=== PATIENT | female | born 1995 | race Two or more races ===

== ENCOUNTER 2024-10-10 08:08 | Emergency (ER) | payer MEDICAID, SELFPAY ==
[2024-10-10 08:16] VITALS: BP 123/81; PULSE 83; RESP 18; TEMP 36.9; O2SAT 99; BMI 40.3
--- NOTE | 2024-10-10 08:27 | XR_ITS ---
Examination: CT brain head without contrast. 2-D sagittal coronal reconstructions Date and time of exam:October 10, 2024 1023 hours INDICATIONS: Onset headaches today CTDI: vol (mGy):52 DLP: (mGycm):1056 Technique: Multiple CT axial sections of the brain have been obtained, 5 mm slice thickness. Contrast has not been administered. 2-D sagittal, coronal reconstructions have been obtained Low dose protocols were performed. One or more of the following dose reduction techniques were used; automated exposure control, adjustment of the mA and/or KV according to patient size, use of iterative reconstruction technique. Findings: No significant ventricular enlargement. Intra-axial or extra-axial hemorrhage density is not seen. No mass effect or midline shift Basal cisterns are not remarkable. Fourth ventricle is midline. Cranial vault intact. Impression: Negative for acute hemorrhage, mass effect or midline shift Advise clinical correlation and follow-up accordingly
[2024-10-10 08:44] LABS: Basophils % (Auto) 0 % (0-2.5); Eosinophils # (Auto) 0.1 Thou/mm3 (0.0-0.5); Eosinophils % (Auto) 2 % (0-10); Hematocrit 36.5 % (36.0-46.0); Hemoglobin 11.4 g/dL (12.0-16.0); Immature Granulocytes % (Auto) 0 % (0-0); Immature Granulocytes Auto 0.02 Thou/mm3 (0.00-0.00); Lymphocytes # (Auto) 1.3 Thou/mm3 (1.0-4.8); Lymphocytes % (Auto) 20 % (10-50); Mean Corpuscular HGB Conc 31.2 g/dl (31.0-37.0); Mean Corpuscular Hemoglobin 24.4 pg (25.0-35.0); Mean Corpuscular Volume 78 fL (80-100); Monocytes # (Auto) 0.3 Thou/mm3 (0.0-0.8); Monocytes % (Auto) 4 % (0-12); Neutrophils # (Auto) 4.7 Thou/mm3 (1.8-7.7); Neutrophils % (Auto) 73 % (37-80); Nucleated Red Blood Cell % 0 /100 WBC (0); Platelet Count 310 Thou/mm3 (140-440); Red Blood Count 4.68 Miln/mm3 (4.00-5.20); White Blood Count 6.4 Thou/mm3 (3.6-11.0)
[2024-10-10 08:50] LABS: Collection Type, Urine Clean Catch
[2024-10-10] MEDS: DiphenhydrAMINE 25 MG CAPSULE PO (08:53)
[2024-10-10] MEDS: HYDROcodone/APAP 5/325 TABLET 1 TAB PO (08:53)
[2024-10-10] MEDS: METOCLOPRAMIDE 5 MG TABLET 10 MG PO (08:53)
[2024-10-10 08:56] LABS: Bilirubin,Urine Negative (Negative); Blood,Urine Negative (Negative); Clarity,Urine Clear (Clear/Hazy); Color,Urine Lt-Yellow (Lt Yel-Yel); Culture Indicated,Urine Not Indicated; Glucose, Urine Negative (Negative); Ketones,Urine Negative (Negative); Leukocyte Esterase,Urine Negative (Negative); Nitrite,Urine Negative (Negative); PH,Urine 7.5 (5.0-7.0); Protein,Urine Negative (Neg - Trace); RBC,Urine < 1 /hpf (0-3); Specific Gravity,Urine 1.018 (1.001-1.035); Squamous Epithelial Cell,Urine 3 /hpf (0-5); Urobilinogen,Urine Negative mg/dL (0.0-1.0); WBC,Urine 1 /hpf (0-5)
[2024-10-10 08:56] LABS: Alanine Aminotransferase 14 U/L (10-49); Albumin, Serum 4.5 gm/dL (3.5-5.0); Albumin/Globulin Ratio 1.4 (1.2-2.2); Alkaline Phosphatase 53 U/L (46-116); Anion Gap 8 (7-16); Aspartate Amino Transferase 17 U/L (0-34); BUN/Creatinine Ratio 17 Ratio (12-20); Bilirubin,Total 0.5 mg/dL (0.3-1.2); Blood Urea Nitrogen 12 mg/dL (9-23); Calcium 9.8 mg/dL (8.3-10.6); Calcium (Corrected) 9.8 mg/dL (8.5-10.1); Carbon Dioxide 27.1 mMol/L (20.0-31.0); Chloride 106 mMol/L (98-107); Creatinine (Component) 0.7 mg/dL (0.6-1.3); Estimated Creatinine Clearance 154.3 mL/min (>60); Globulin 3.3 gm/dL (2.3-3.5); Glucose 100 mg/dL (74-106); Osmolality,Calculated 280 (275-295); Potassium 4.2 mMol/L (3.4-5.1); Sodium 141 mMol/L (136-145); Total Protein 7.8 gm/dL (5.7-8.2); eGFR > 60 See Note
[2024-10-10 08:58] LABS: HCG Qualitative,Urine Negative
--- NOTE | 2024-10-10 10:39 | PD.EDHA ---
ED Headache RME/HPI General Chief Complaint: Headache Stated Complaint: DEL RIO, NAUSEA, DIZZY, SHAKEY OVER 1 WK Time Seen by Provider: 10/10/24 08:10 Arrival date/time: 10/10/24 08:08 28-year-old female history of anxiety and depression currently on sertraline presents to the emergency department today complaints of headache and dizziness intermittently ongoing for the last week. Limitations: no limitations Related Data Home Medications ?Medication ?Instructions ?Recorded ?Confirmed omeprazole 20 mg capsule,delayed 20 mg PO DAILY 12/08/23 12/08/23 release sertraline 50 mg tablet 50 mg PO DAILY 12/08/23 12/08/23 Previous Rx's ?Medication ?Instructions ?Recorded benzonatate 100 mg capsule 100 mg PO TID #14 caps 02/01/24 ibuprofen 800 mg tablet 800 mg PO TID PRN pain #30 tabs 02/01/24 acetaminophen-caffeine 500 mg-65 1 tab PO Q6H PRN pain #30 tabs 10/10/24 mg tablet (Excedrin Tension Headache) ibuprofen 800 mg tablet 800 mg PO TID PRN pain #30 tabs 10/10/24 Allergies Allergy/AdvReac Type Severity Reaction Status Date / Time No Known Allergies Allergy Verified 10/10/24 08:11 Review of Systems Review of Systems Systems Reviewed: All systems reviewed, normal except as documented Constitutional Constitutional: Reports system reviewed and no additional complaints, except as documented, Denies fever(s) and Reports headache(s) Eyes Eyes: Reports system reviewed and no additional complaints, except as documented and Denies blurry vision ENT Ears, Nose, Mouth, and Throat: Reports system reviewed and no additional complaints, except as documented, Reports headache(s), Denies nasal congestion and Denies nasal discharge Cardiovascular Cardiovascular: Reports system reviewed and no additional complaints, except as documented, Denies chest pain and Denies dyspnea Respiratory Respiratory: Reports system reviewed and no additional complaints, except as documented, Denies chest congestion, Denies cough and Denies dyspnea Gastrointestinal Gastrointestinal: Reports system reviewed and no additional complaints, except as documented and Denies abdominal pain Integumentary/Breasts Skin/Breast: Reports system reviewed and no additional complaints, except as documented and Denies rash Neurologic Neurologic: Reports system reviewed and no additional complaints, except as documented, Reports as per HPI and Reports headache(s) Psychiatric Psychiatric: Reports system reviewed and no additional complaints, except as documented and Reports anxiety Past Medical History Past Medical History NEUROLOGIC: Negative Neurological Disorders or Seizures CARDIAC: Positive Hypercholesterolemia; Negative Cardiac Disorders or Congestive Heart Failure RESPIRATORY: Negative Chronic Obstructive Pulmonary Disease (COPD) or Asthma GASTROINTESTINAL: Negative Gastrointestinal Disorders GENITOURINARY: Negative Genitourinary Disorders or Renal Disease REPRODUCTIVE: Negative Pelvic Inflammatory Disease MUSCULOSKELETAL: Negative Musculoskeletal Disorders ENDOCRINE: Negative Endocrine Disorders, Diabetes Mellitus Type 1 or Diabetes Mellitus Type 2 HEMATOLOGIC: Negative Blood Disorders or Sickle Cell Disease PSYCHO/SOCIAL: Positive Depression and Anxiety OTHER HISTORY: Negative Autoimmune Disease, Blood Transfusions, Blood Transfusion Reaction, Anesthesia Reactions or Cancer Social History SMOKING STATUS: Former smoker ED Exam General Limitations: Present no limitations General appearance: Present alert and in no apparent distress Head Head exam: Present atraumatic, normocephalic and normal inspection Eye Eye exam: Present normal appearance, PERRL and EOMI; Absent conjunctival injection ENT ENT exam: Present normal exam, normal oropharynx and mucous membranes moist Neck Neck exam: Present normal inspection, full ROM and trachea midline Chest Chest inspection: Present normal inspection and symmetric chest wall rise Respiratory Respiratory exam: Present normal lung sounds bilaterally Cardiovascular Cardiovascular exam: Present regular rate, normal rhythm and normal heart sounds Abdominal Exam Abdominal exam: Present soft and normal bowel sounds; Absent distention, tenderness, guarding, rebound or rigidity Extremities Exam Extremities exam: Present normal inspection and full ROM Back Exam Back exam: Present normal inspection and full ROM Neurological Exam Neurological exam: Present alert, oriented X3, CN II-XII intact, normal gait and reflexes normal; Absent motor sensory deficit Psychiatric Psychiatric exam: Present normal affect and normal mood Skin Skin exam: Present warm, dry, intact and normal color; Absent rash Course Quality Measures none Orders Category Date Time Status CT head/brain wo con Stat Exams 10/10/24 08:27 Completed CBC Stat Lab 10/10/24 08:24 Completed Comprehensive Metabolic Panel Stat Lab 10/10/24 08:24 Completed HCG Qualitative,Urine Stat Lab 10/10/24 08:30 Completed UA, C/S IF [Urinalysis, C/S if Indicated] Stat Lab 10/10/24 08:30 Completed DiphenhydrAMINE [Benadryl] Med 10/10/24 08:27 Discontinued 25 mg PO X1 ONE HYDROcodone*/APAP 5/325 [[place] 5/325] Med 10/10/24 08:27 Discontinued 1 tab PO X1 ONE Metoclopramide [Reglan] Med 10/10/24 08:27 Discontinued 10 mg PO X1 ONE Vital Signs Vital signs: Vital Signs Temperature 98.5 F 10/10/24 08:16 Pulse Rate 83 10/10/24 08:16 Respiratory Rate 18 10/10/24 08:16 Blood Pressure 123/81 10/10/24 08:16 Pulse Oximetry (%) 99 10/10/24 08:16 Oxygen Delivery Method Room Air 10/10/24 08:16 O2 saturation 99% r/a wnl Headache MDM Narrative MDM Narrative:: 28-year-old female history of anxiety and depression currently on sertraline presents to the emergency department today complaints of headache and dizziness intermittently ongoing for the last week. On exam patient well-appearing patient does not appear ill or toxic patient walks with steady gait Imaging and lab work obtained no acute emergent findings noted Patient discharged home in no distress to follow-up with primary care doctor in the next 24 to 48 hours and for any worsening symptoms to return to the ER immediately Patient data External records reviewed:: [facility] previous records Clinical information provided by:: patient Social determinants that could affect healthcare access:: none Patient has the following chronic illnesses:: Anxiety, depression How is presenting disease/condition affected by chronic disease/condition?: exacerbated by Evaluation data The following diagnostics were reviewed and interpreted by me:: lab results and radiology exam(s) Lab and/or radiology exams considered but not ordered:: Labs radiology obtain Interpretation Summary: Reviewed by me Medications / Prescriptions Medications or Prescriptions considered but not ordered:: Given Medication administrations:: Medication Administration History Discontinued Medications Hydrocodone Bitart/Acetaminophen (Hydrocodone/Apap 5/325 Tablet) 1 tab PO X1 ONE Stop: 10/10/24 08:28 Last Admin: 10/10/24 08:53 Dose: 1 tab Documented By: LP Diphenhydramine HCl (Diphenhydramine 25 Mg Capsule) 25 mg PO X1 ONE Stop: 10/10/24 08:28 Last Admin: 10/10/24 08:53 Dose: 25 mg Documented By: LP Metoclopramide HCl (Metoclopramide 5 Mg Tablet) 10 mg PO X1 ONE Stop: 10/10/24 08:28 Last Admin: 10/10/24 08:53 Dose: 10 mg Documented By: LP Given Consultations Consultation(s) initiated? (list below): No Diagnosis Differential diagnosis headache: migraine, tension headache and subarachnoid hemorrhage Most likely diagnosis given after review of the tests above:: Headache Admission Indicated Admission indicated?: not indicated Admission Request Was there a request for admission?: No Disposition Plan Disposition Plan: Discharge Discharge Attestation Discharge Attestation: The patient and all family members were given an opportunity to ask questions and understood the discharge instructions. Discharge instructions specifically effects, indications for sooner follow up or return to the emergency department, and the expected course of current diagnosis. Patient condition: Stable Discharge Plan Plan Patient Disposition: HOME (Self Care) Disposition Comment: Stable Prescriptions/Referrals Prescriptions/Med Rec: New Excedrin Tension Headache 500-65 mg tablet 1 tab PO Q6H PRN (Reason: pain) Qty: 30 0RF ibuprofen 800 mg tablet 800 mg PO TID PRN (Reason: pain) Qty: 30 0RF No Action omeprazole 20 mg capsule,delayed release(DR/EC) 20 mg PO DAILY sertraline 50 mg tablet 50 mg PO DAILY benzonatate 100 mg capsule 100 mg PO TID Qty: 14 0RF ibuprofen 800 mg tablet 800 mg PO TID PRN (Reason: pain) Qty: 30 0RF Referrals: Solo Turcios MD [Primary Care Provider] - 10/11/24 Problem List Clinical Impression: Headache Patient/Caregiver Discharge Instructions Education Materials: Self-Care for Headaches Additional Instructions: Please follow up with your primary care doctor in the next 24-48hrs for any worsening symptoms return here immediately Print Language: Thai Stand Alone Forms: Jennifer Award Info., Work/School Release, Patient Portal Info Letter PA/FILAMENT CUTTER Supervising Physician JENNY/RENAN Supervising Physician: Dr. argueta
== END 2024-10-10 10:52 | disposition home or self-care (01) ==
PROVIDERS: Nurse Practitioner Primary Care; Emergency Provider Family Medicine; PCP Family Medicine
DX: R51.9 Headache, unspecified (principal); R42 Dizziness and giddiness
CPT/HCPCS: 36415; 70450; 80053; 81001; 81025; 85025; 99284; A9270

== ENCOUNTER 2024-10-12 07:42 | Emergency (ER) | payer MEDICAID, SELFPAY ==
--- NOTE | 2024-10-12 | XR_ITS ---
Examination: MRI brain without intravenous contrast. Date and time of exam: October 12, 2024 1014 hours Technique: Multiple axial and sagittal images of the brain obtained. Patient refused most of the MR imaging except diffusion images, ADC map images and FLAIR images FINDINGS: Ventricles are not enlarged No mass effect upon the ventricular system. Diffusion-weighted images demonstrate no focus of restricted diffusion FLAIR images are severely degraded by patient motion IMPRESSION: The study is severely limited secondary to lack of patient cooperation Ventricles are not enlarged, no mass effect upon the ventricular system No acute infarct No definite findings diagnostic for demyelinating disease
[2024-10-12 07:49] VITALS: BP 134/85; PULSE 77; RESP 17; TEMP 36.5; O2SAT 97; BMI 40.3
--- NOTE | 2024-10-12 08:35 | EDNOTE_ITS ---
ED Dizzyness RME/HPI General Chief Complaint: Dizziness Stated Complaint: DIZZY, SWEATING, SHAKING Time Seen by Provider: 10/12/24 08:01 Source: patient Arrival date/time: 10/12/24 07:42 This is a 28-year-old female presents to the emergency department with complaints of a near syncopal episode while at work. She reports during all night she was experiencing generalized headaches and sweating. Reports she went to work became dizzy and slumped over. Remains faintly hearing people's voices that woke her up. Reports at this time still feeling dizzy. Denies fever, chills, no neck pain no chest pain no nausea no vomiting. Mode of arrival: ambulatory Limitations: no limitations Related Data Home Medications ?Medication ?Instructions ?Recorded ?Confirmed omeprazole 20 mg capsule,delayed 20 mg PO DAILY 12/08/23 release sertraline 50 mg tablet 50 mg PO DAILY 12/08/2311/22 Previous Rx's ?Medication ?Instructions ?Recorded benzonatate 100 mg capsule 100 mg PO TID #14 caps 01/22 ibuprofen 800 mg tablet 800 mg PO TID PRN pain #30 t abs 02/01/24 acetaminophen-caffeine 500 mg-65 1 tab PO Q6H PRN pain #30 tabs 10/10/24 mg tablet (Excedrin Tension Headache) ibuprofen 800 mg tablet 800 mg PO TID PRN pain #30 t abs 10/10/24 Allergies Allergy/AdvReac Type Severity Reaction Status Date / Time No Known Allergies Allergy Verified 10/12/24 07:44 Review of Systems Review of Systems Systems Reviewed: All systems reviewed, normal except as documented Narrative Review of Systems: Gen: No fever, no chills, no weight loss EYES: No discharge, no visual changes, no pain HEENT: No ear pain, no congestion, no sore throat PULM: No shortness of breath, no cough, no congestion CV: No chest pain, no dyspnea on exertion, no palpitations GI: No nausea, no vomiting, no diarrhea, no pain, no constipation : No frequency, no urgency,? no dysuria Musc/skel: No joint pain, no back pain Skin: No rash? Psyc: No hallucinations, no depression Heme/Lymph: No easy bleeding or bruising tendencies Neuro: No weakness, + headache, positive dizziness ED Exam Narrative Physical exam: 28-year-old female awake and alert General Limitations: Present no limitations General appearance: Present alert and in no apparent distress Head Head exam: Present atraumatic Eye Eye exam: Present normal appearance, PERRL, EOMI and other (Mild Exophthalmos, + nystagmus) ENT ENT exam: Present normal exam, normal oropharynx and mucous membranes moist Neck Neck exam: Present normal inspection, full ROM and trachea midline Chest Chest inspection: Present normal inspection and symmetric chest wall rise Respiratory Respiratory exam: Present normal lung sounds bilaterally Cardiovascular Cardiovascular exam: Present regular rate, normal rhythm and normal heart sounds Abdominal Exam Abdominal exam: Present soft and normal bowel sounds; Absent distention, tenderness or guarding Extremities Exam Extremities exam: Present normal inspection and full ROM Back Exam Back exam: Present normal inspection and full ROM Neurological Exam Neurological exam: Present alert, oriented X3 and CN II-XII intact Expanded Neurological Exam Patient oriented to: Present person, place and time Speech: Present fluid speech Cranial nerves: Normal: EOM function (II, III, IV, ), facial sensation (V), facial palsy (VII), gag reflex (IX) and tongue deviation (XII) Cerebellar function: Normal: finger to nose and heel to mcintosh Cerebellar function: Present normal gait Motor strength - LUE: 5/5 Motor strength - RUE: 5/5 Motor strength - LLE: 5/5 Motor strength - RLE: 5/5 Upper motor neuron exam: Normal: geno neglect, pronator drift, Babinski sign and sensory extinction Coma scale eye opening: spontaneous Coma scale motor response: obeys commands Coma scale verbal response: oriented Coma scale total: 15 Psychiatric Psychiatric exam: Present normal affect and normal mood Skin Skin exam: Present warm, dry, intact and normal color Course Quality Measures none Orders Category Date Time Status MRI Screening NOW Care 10/12/24 08:11 Completed MR head/brain wo con Stat Exams 10/12/24 Completed CBC Stat Lab 10/12/24 08:32 Completed CMP [Comprehensive Metabolic Panel] Stat Lab 10/12/24 08:32 Completed Free T4 (Free Thyroxine) Stat Lab 10/12/24 08:32 Completed HCG,Qualitative Serum Stat Lab 10/12/24 08:32 Completed PTH [Parathyroid Hormone Intact] Stat Lab 10/12/24 08:32 Completed TSH [Thyroid Stimulating Hormone] Stat Lab 10/12/24 08:32 Completed Vital Signs Vital signs: Vital Signs Temperature 97.7 F 10/12/24 07:49 Pulse Rate 77 10/12/24 07:49 Respiratory Rate 17 10/12/24 07:49 Blood Pressure 134/85 H 10/12/24 07:49 Pulse Oximetry (%) 97 10/12/24 07:49 Oxygen Delivery Method Room Air 10/12/24 07:49 Dizziness MDM Narrative MDM Narrative:: 28-year-old female near syncopal episode while at work. She reports during all night she was experiencing generalized headaches and sweating. Reports she went to work became dizzy and slumped over. Vaguely remembers hearing people's voices that woke her up. Reports at this time still feeling dizzy. Denies fever, chills, no neck pain no chest pain no nausea no vomiting. Labs were ordered which mild anemia. CMP reassuring. TSH T4 PTH negative. hCG negative. MRI brain pending, negative acute pathology. CT completed today reviewed previous ER visit on 319 labs and imaging were reassuring. Advised patient that if she continues to have chronic headache she might need a referral to neurology. She is currently and not on any abortive or therapeutic medication for migraines. Reassured her symptoms can be related to her chronic headaches. ER precautions given. Patient data External records reviewed:: [facility] previous records Clinical information provided by:: patient Social determinants that could affect healthcare access:: none Patient has the following chronic illnesses:: Depression and chronic headaches How is presenting disease/condition affected by chronic disease/condition?: exacerbated by Evaluation data The following diagnostics were reviewed and interpreted by me:: lab results and radiology exam(s) Lab and/or radiology exams considered but not ordered:: no Interpretation Summary: see above Examination: MRI brain without intravenous contrast. Date and time of exam: October 12, 2024 1014 hours Technique: Multiple axial and sagittal images of the brain obtained. Patient refused most of the MR imaging except diffusion images, ADC map images and FLAIR images FINDINGS: Ventricles are not enlarged No mass effect upon the ventricular system. Diffusion-weighted images demonstrate no focus of restricted diffusion FLAIR images are severely degraded by patient motion IMPRESSION: The study is severely limited secondary to lack of patient cooperation Ventricles are not enlarged, no mass effect upon the ventricular system No acute infarct No definite findings diagnostic for demyelinating disease Medications / Prescriptions Medications or Prescriptions considered but not ordered:: no Medication administrations:: no Consultations Consultation(s) initiated? (list below): No Diagnosis Dizziness Differential Diagnosis: adverse reaction to drug, benign paroxysmal positional vertigo, orthostatic hypotension, vertebral basilar insufficiency, acute vestibular neuronitis, transient cerebral ischemia and other Most likely diagnosis given after review of the tests above:: Near syncopal, dizziness. Admission Indicated Admission indicated?: not indicated Admission Request Was there a request for admission?: No Disposition Plan Disposition Plan: Discharge Discharge Attestation Discharge Attestation: The patient and all family members were given an opportunity to ask questions and understood the discharge instructions. Discharge instructions specifically effects, indications for sooner follow up or return to the emergency department, and the expected course of current diagnosis. Patient condition: Stable Discharge Plan Plan Patient Disposition: HOME (Self Care) Prescriptions/Referrals Prescriptions/Med Rec: No Action omeprazole 20 mg capsule,delayed release(DR/EC) 20 mg PO DAILY sertraline 50 mg tablet 50 mg PO DAILY benzonatate 100 mg capsule 100 mg PO TID Qty: 14 0RF ibuprofen 800 mg tablet 800 mg PO TID PRN (Reason: pain) Qty: 30 0RF Excedrin Tension Headache 500-65 mg tablet 1 tab PO Q6H PRN (Reason: pain) Qty: 30 0RF ibuprofen 800 mg tablet 800 mg PO TID PRN (Reason: pain) Qty: 30 0RF Referrals: No Primary/Family,Physician [Primary Care Provider] - In 1 week Problem List Clinical Impression: Dizziness, Headache Patient/Caregiver Discharge Instructions Discharge Activity: activity as tolerated Education Materials: Self-Care for Headaches, ED Dizziness, Uncertain Cause Additional Instructions: It is very important that you make an appointment with your primary doctor You might need to be evaluated by neurologist In the last 2 visits to the emergency department all your labs and imaging were reassuring. If you have reoccurring headaches you might need migraine treatment Return to the emergency department this any worsening symptoms or change in condition. Print Language: Peruvian Stand Alone Forms: Jennifer Award Info., Work/School Release, Patient Portal Info Letter PA/ELECT[employer]ICAL [employer]IO MECHANIC Supervising Physician PA/[employer] MECH[employer]IC Supervising Physician: Dr Lundberg
[2024-10-12 08:40] LABS: Basophils % (Auto) 0 % (0-2.5); Eosinophils # (Auto) 0.1 Thou/mm3 (0.0-0.5); Eosinophils % (Auto) 2 % (0-10); Hemoglobin 11.3 g/dL (12.0-16.0); Immature Granulocytes % (Auto) 0 % (0-0); Immature Granulocytes Auto 0.01 Thou/mm3 (0.00-0.00); Lymphocytes # (Auto) 1.6 Thou/mm3 (1.0-4.8); Lymphocytes % (Auto) 26 % (10-50); Mean Corpuscular HGB Conc 31.4 g/dl (31.0-37.0); Mean Corpuscular Hemoglobin 24.3 pg (25.0-35.0); Mean Corpuscular Volume 77 fL (80-100); Monocytes # (Auto) 0.3 Thou/mm3 (0.0-0.8); Monocytes % (Auto) 4 % (0-12); Neutrophils # (Auto) 4.1 Thou/mm3 (1.8-7.7); Neutrophils % (Auto) 67 % (37-80); Nucleated Red Blood Cell % 0 /100 WBC (0); Platelet Count 284 Thou/mm3 (140-440); RDW Standard Deviation 39.8 fL (36.4-46.3); Red Blood Count 4.65 Miln/mm3 (4.00-5.20); White Blood Count 6.1 Thou/mm3 (3.6-11.0)
[2024-10-12 08:56] LABS: Parathyroid Hormone Intact 54.1 pg/ml (18.5-88.0)
[2024-10-12 09:01] LABS: Alanine Aminotransferase 14 U/L (10-49); Albumin, Serum 4.6 gm/dL (3.5-5.0); Albumin/Globulin Ratio 1.4 (1.2-2.2); Alkaline Phosphatase 55 U/L (46-116); Anion Gap 8 (7-16); Aspartate Amino Transferase 18 U/L (0-34); BUN/Creatinine Ratio 13 Ratio (12-20); Bilirubin,Total 0.5 mg/dL (0.3-1.2); Blood Urea Nitrogen 10 mg/dL (9-23); Carbon Dioxide 27.1 mMol/L (20.0-31.0); Chloride 105 mMol/L (98-107); Creatinine (Component) 0.8 mg/dL (0.6-1.3); Free T4 (Free Thyroxine) 1.06 ng/dL (0.89-1.76); Globulin 3.4 gm/dL (2.3-3.5); Glucose 92 mg/dL (74-106); Osmolality,Calculated 278 (275-295); Sodium 140 mMol/L (136-145); Thyroid Stimulating Hormone 0.68 uIU/mL (0.55-4.78); eGFR > 60 See Note
[2024-10-12 09:04] LABS: HCG,Qualitative Serum Negative
--- NOTE | 2024-10-12 09:50 | PC.NURSE ---
MRI CALLED AND MADE AWARE MRI SCREENING FORM IS DONE; PT READY FOR MRI. PER MRI, WILL GO TAKE PT SOON.
--- NOTE | 2024-10-12 10:35 | PC.NURSE ---
MRI CALLED, REPORTS PT UNABLE TO SIT THROUGH FULL EXAM.
[2024-10-12 11:56] VITALS: BP 118/75; PULSE 76; RESP 17; TEMP 36.8; O2SAT 98
== END 2024-10-12 11:58 | disposition home or self-care (01) ==
PROVIDERS: Nurse Practitioner Primary Care; Emergency Provider Emergency Medicine
DX: R42 Dizziness and giddiness (principal); R51.9 Headache, unspecified
CPT/HCPCS: 36415; 70551; 80053; 83970; 84439; 84443; 84703; 85025; 99284

== ENCOUNTER 2025-01-31 15:10 | Emergency (ER) | payer MEDICAID, SELFPAY ==
[2025-01-31 15:25] VITALS: BP 122/79; PULSE 82; RESP 16; TEMP 37.2; O2SAT 97; BMI 40.3
--- NOTE | 2025-01-31 15:35 | XR_ITS ---
Examination: CT abdomen and pelvis without contrast. Coronal 3-D reconstructions. Sagittal 2-D reconstructions. Date and time of exam:January 31, 2025 1632 hours INDICATIONS: Right flank pain and dysuria beginning 2 days ago CTDI: vol (mGy): 13 DLP: (mGycm): 747 Technique: Axial images of the abdomen have been obtained, 3 mm slice thickness Intravenous contrast material has not been administered. Low dose protocols were performed. One or more of the following dose reduction techniques were used; automated exposure control, adjustment of the mA and/or KV according to patient size, use of iterative reconstruction technique. Findings: No focal liver or splenic lesions Absent gallbladder No pancreatic or adrenal mass 1 mm mid pole right renal calculus, coronal image 104 Aorta normal size Normal appendix No bowel obstruction No pelvic mass No bladder mass or bladder calculi IMPRESSION: No hydronephrosis or ureteral calculi 1 mm mid pole nonobstructing right renal calculus
--- NOTE | 2025-01-31 15:35 | PD.EDRME ---
Rapid Medical Screening Exam RME Arrival date/time: 01/31/25 15:10 29-year-old female presents to the emergency department for complaints of dysuria, back pain and abdominal pain Chief Complaint: Urogenital-Female Time Seen by Provider: 01/31/25 15:20 Vital signs: Vital Signs Temperature 99.0 F 01/31/25 15:25 Pulse Rate 82 01/31/25 15:25 Respiratory Rate 16 01/31/25 15:25 Blood Pressure 122/79 01/31/25 15:25 Pulse Oximetry (%) 97 01/31/25 15:25 Oxygen Delivery Method Room Air 01/31/25 15:25
[2025-01-31 15:52] LABS: Collection Type, Urine Clean Catch
[2025-01-31 15:55] LABS: Bilirubin,Urine Negative (Negative); Blood,Urine Trace (Negative); Clarity,Urine Clear (Clear/Hazy); Color,Urine Lt-Yellow (Lt Yel-Yel); Culture Indicated,Urine Not Indicated; Glucose, Urine Negative (Negative); Ketones,Urine Negative (Negative); Leukocyte Esterase,Urine Negative (Negative); Nitrite,Urine Negative (Negative); PH,Urine 6.0 (5.0-7.0); Protein,Urine Negative (Neg - Trace); RBC,Urine 6 /hpf (0-3); Specific Gravity,Urine 1.025 (1.001-1.035); Squamous Epithelial Cell,Urine 4 /hpf (0-5); Urobilinogen,Urine Negative mg/dL (0.0-1.0); WBC,Urine 1 /hpf (0-5)
[2025-01-31 15:57] LABS: Basophils # (Auto) 0.0 Thou/mm3 (0.0-0.2); Basophils % (Auto) 0 % (0-2.5); Eosinophils # (Auto) 0.1 Thou/mm3 (0.0-0.5); Eosinophils % (Auto) 2 % (0-10); Hematocrit 32.3 % (36.0-46.0); Hemoglobin 10.5 g/dL (12.0-16.0); Immature Granulocytes Auto 0.03 Thou/mm3 (0.00-0.00); Lymphocytes # (Auto) 2.2 Thou/mm3 (1.0-4.8); Lymphocytes % (Auto) 25 % (10-50); Mean Corpuscular HGB Conc 32.5 g/dl (31.0-37.0); Mean Corpuscular Hemoglobin 24.5 pg (25.0-35.0); Mean Corpuscular Volume 75 fL (80-100); Monocytes # (Auto) 0.4 Thou/mm3 (0.0-0.8); Monocytes % (Auto) 4 % (0-12); Neutrophils # (Auto) 6.0 Thou/mm3 (1.8-7.7); Neutrophils % (Auto) 69 % (37-80); Nucleated Red Blood Cell # 0.00 Thou/mm3 (0.00-0.00); Nucleated Red Blood Cell % 0 /100 WBC (0); Platelet Count 277 Thou/mm3 (140-440); RDW Standard Deviation 40.9 fL (36.4-46.3); Red Blood Count 4.29 Miln/mm3 (4.00-5.20); White Blood Count 8.8 Thou/mm3 (3.6-11.0)
[2025-01-31 16:01] LABS: HCG Qualitative,Urine Negative
[2025-01-31 16:12] LABS: Alanine Aminotransferase 12 U/L (10-49); Albumin, Serum 4.4 gm/dL (3.5-5.0); Albumin/Globulin Ratio 1.5 (1.2-2.2); Alkaline Phosphatase 54 U/L (46-116); Anion Gap 9 (7-16); Aspartate Amino Transferase 14 U/L (0-34); BUN/Creatinine Ratio 11 Ratio (12-20); Bilirubin,Total 0.3 mg/dL (0.3-1.2); Blood Urea Nitrogen 11 mg/dL (9-23); Calcium 9.1 mg/dL (8.3-10.6); Calcium (Corrected) 9.1 mg/dL (8.5-10.1); Carbon Dioxide 28.5 mMol/L (20.0-31.0); Chloride 104 mMol/L (98-107); Creatinine (Component) 1.0 mg/dL (0.6-1.3); Estimated Creatinine Clearance 107.0 mL/min (>60); Globulin 3.0 gm/dL (2.3-3.5); Glucose 86 mg/dL (74-106); Lipase 42 U/L (12-53); Osmolality,Calculated 279 (275-295); Potassium 4.1 mMol/L (3.4-5.1); Sodium 141 mMol/L (136-145); Total Protein 7.4 gm/dL (5.7-8.2); eGFR > 60 See Note
[2025-01-31 17:53] VITALS: BP 132/78; PULSE 78; RESP 18; TEMP 36.8; O2SAT 98
--- NOTE | 2025-01-31 17:57 | EDNOTE_ITS ---
ED Female Urogenital RME/HPI General Chief complaint: Urogenital-Female Stated complaint: Back pain and painful urination X 1 week Time Seen by Provider: 01/31/25 15:20 Arrival date/time: 01/31/25 15:10 RME / HPI RME / HPI Narrative: 29-year-old female patient with no significant medical history, came in for evaluation regarding low back pain. Onset of symptoms for 1 week, described as burning-like sensation, pain radiates to the front. Associated with frequency. Patient denies any bladder incontinence denies any bowel incontinence denies any saddle anesthesia. Denies any trauma denies any fever denies any other complaints. Related Data Home Medications ?Medication ?Instructions ?Recorded ?Confirmed omeprazole 20 mg capsule,delayed 20 mg PO DAILY 12/08/23 release sertraline 50 mg tablet 50 mg PO DAILY 12/08/2311/22 Previous Rx's ?Medication ?Instructions ?Recorded benzonatate 100 mg capsule 100 mg PO TID #14 caps 01/22 ibuprofen 800 mg tablet 800 mg PO TID PRN pain #30 t abs 02/01/24 acetaminophen-caffeine 500 mg-65 1 tab PO Q6H PRN pain #30 tabs 10/10/24 mg tablet (Excedrin Tension Headache) ibuprofen 800 mg tablet 800 mg PO TID PRN pain #30 t abs 10/10/24 cyclobenzaprine 10 mg tablet 10 mg PO TID PRN muscle s pasm #30 01/31/25 tabs ibuprofen 800 mg tablet 800 mg PO Q8H PRN pain #30 t abs 01/31/25 Allergies Allergy/AdvReac Type Severity Reaction Status Date / Time No Known Allergies Allergy Verified 01/31/25 15:13 Review of Systems Review of Systems Narrative Review of Systems: Review of system reviewed and within normal limits except mentioned in HPI ED Exam Narrative Physical exam: VITAL SIGNS: Reviewed. GENERAL APPEARANCE: Alert and interactive, follows commands, no acute distress, HEAD AND FACE: Non-traumatic. ENT: PERRL, pink conjunctivitis, eyelid no trauma, Mucous membrane moist. NECK: Supple, nontender, no nuchal rigidity. CHEST: No tenderness, no crepitus, no paradoxical movement, no retractions. LUNGS: Clear, well ventilated, symmetric, no rales, no wheezing, no ronchi, no stridor, good breath sounds bilaterally. HEART: Regular rate, regular rhythm, no murmur, no gallops. ABDOMEN: Soft, positive bowel sounds, nondistended, no guarding, nontender, no rebound, no masses, RECTAL: Deferred. GENITAL: Deferred. NEUROLOGICAL: Gross motor function intact sensory function intact, Appropriate for age. MUSCULOSKELETAL: low back tenderness, full range of motion. EXTREMITIES: Nontender, full range of motion. SKIN: Color pink, dry, no rash, no lacerations, no abrasions, no contusions. LYMPHATICS: Deferred. Course Quality Measures none Orders Category Date Time Status CT abdomen pelvis wo con Stat Exams 01/31/25 15:35 Completed CBC Stat Lab 01/31/25 15:48 Completed Comprehensive Metabolic Panel Stat Lab 01/31/25 15:48 Completed HCG Qualitative,Urine Stat Lab 01/31/25 15:39 Completed Lipase Stat Lab 01/31/25 15:48 Completed UA, C/S IF [Urinalysis, C/S if Indicated] Stat Lab 01/31/25 15:39 Completed Vital Signs Vital signs: Vital Signs Temperature 99.0 F 01/31/25 15:25 Pulse Rate 82 01/31/25 15:25 Respiratory Rate 16 01/31/25 15:25 Blood Pressure 122/79 01/31/25 15:25 Pulse Oximetry (%) 97 01/31/25 15:25 Oxygen Delivery Method Room Air 01/31/25 15:25 Urogenital - Female MDM Narrative MDM Narrative:: 29-year-old female patient with no significant medical history, came in for evaluation regarding low back pain. Onset of symptoms for 1 week, described as burning-like sensation, pain radiates to the front. Associated with frequency. Patient denies any bladder incontinence denies any bowel incontinence denies any saddle anesthesia. Denies any trauma denies any fever denies any other complaints. CT scan of the abdomen pelvis showed 1 mm right-sided kidney stone otherwise unremarkable. Laboratory workup including urinalysis, normal. Patient is having low back pain. No further imaging is needed at this time patient not showing any cauda equina syndrome. Patient stable for discharge home patient is ambulatory. Patient data External records reviewed:: None Clinical information provided by:: patient Social determinants that could affect healthcare access:: none Patient has the following chronic illnesses:: None How is presenting disease/condition affected by chronic disease/condition?: no chronic disease Evaluation data The following diagnostics were reviewed and interpreted by me:: lab results and radiology exam(s) Lab and/or radiology exams considered but not ordered:: Plan Interpretation Summary: See recent MDM Medications / Prescriptions Medications or Prescriptions considered but not ordered:: None Medication administrations:: None Consultations Consultation(s) initiated? (list below): No Diagnosis Urogenital Female Differential Diagnosis: urinary tract infection and other (Acute low back pain,) Most likely diagnosis given after review of the tests above:: Acute low back pain Admission Indicated Admission indicated?: not indicated Admission Request Was there a request for admission?: No Disposition Plan Disposition Plan: Discharge Discharge Attestation Discharge Attestation: The patient was given an opportunity to ask questions and understood the discharge instructions. Discharge instructions specifically effects, indications for sooner follow up or return to the emergency department, and the expected course of current diagnosis. Patient condition: Stable Discharge Plan Plan Patient Disposition: HOME (Self Care) Discharge Disposition comment: Stable Prescriptions/Referrals Prescriptions/Med Rec: New ibuprofen 800 mg tablet 800 mg PO Q8H PRN (Reason: pain) Qty: 30 0RF cyclobenzaprine 10 mg tablet 10 mg PO TID PRN (Reason: muscle spasm) Qty: 30 0RF No Action omeprazole 20 mg capsule,delayed release(DR/EC) 20 mg PO DAILY sertraline 50 mg tablet 50 mg PO DAILY benzonatate 100 mg capsule 100 mg PO TID Qty: 14 0RF ibuprofen 800 mg tablet 800 mg PO TID PRN (Reason: pain) Qty: 30 0RF Excedrin Tension Headache 500-65 mg tablet 1 tab PO Q6H PRN (Reason: pain) Qty: 30 0RF ibuprofen 800 mg tablet 800 mg PO TID PRN (Reason: pain) Qty: 30 0RF Referrals: No Primary/Family,Physician [Primary Care Provider] - In 1 week Problem List Clinical Impression: Low back pain Patient/Caregiver Discharge Instructions Discharge Activity: activity as tolerated Education Materials: Back Exercises: Side Stretch, ED Back Care Tips Additional Instructions: Thank you for the opportunity for serving you today. You are stable for discharged . You are advised to: Follow-up with your PCP in 1 to 2 days Return to ED for worsening of symptoms Increase oral fluids Take medication as prescribed Print Language: [place] Citizen Stand Alone Forms: Jennifer Award Info., Patient Portal Info Letter PA/SECURITY TEAM LEAD Supervising Physician PA/SECURITY TEAM LEAD Supervising Physician: MD Aguilar
== END 2025-01-31 18:26 | disposition home or self-care (01) ==
PROVIDERS: Nurse Practitioner Primary Care; Emergency Provider Emergency Medicine
DX: N20.0 Calculus of kidney (principal)
CPT/HCPCS: 36415; 74176; 80053; 81001; 81025; 83690; 85025; 99283

== ENCOUNTER 2025-02-07 07:18 | Emergency (ER) | payer MEDICAID, SELFPAY ==
[2025-02-07 07:19] VITALS: BMI 40.3
[2025-02-07 07:24] VITALS: BP 143/80; PULSE 85; RESP 17; TEMP 36.7; O2SAT 99
--- NOTE | 2025-02-07 07:38 | XR_ITS ---
Examination: CT abdomen and pelvis without contrast. Coronal 3-D reconstructions. Sagittal 2-D reconstructions. Date and time of exam:February 07, 2025 0954 hours INDICATIONS: Onset flank pain today CTDI: vol (mGy): 12.6 DLP: (mGycm): 745 Technique: Axial images of the abdomen have been obtained, 3 mm slice thickness Intravenous contrast material has not been administered. Low dose protocols were performed. One or more of the following dose reduction techniques were used; automated exposure control, adjustment of the mA and/or KV according to patient size, use of iterative reconstruction technique. Findings: No focal liver or splenic lesions Absent gallbladder No pancreatic or adrenal mass 1 mm right renal calculus axial image 87 No hydronephrosis or ureteral calculi Normal appendix No bowel obstruction No pelvic mass No bladder mass or bladder calculi IMPRESSION: 1 mm nonobstructing right renal calculus
[2025-02-07] MEDS: KETOROLAC INJ 60 MG/2 ML VIAL 30 MG IM (07:45)
[2025-02-07 08:14] LABS: Collection Type, Urine Clean Catch
[2025-02-07 08:18] LABS: Basophils # (Auto) 0.0 Thou/mm3 (0.0-0.2); Basophils % (Auto) 0 % (0-2.5); Eosinophils # (Auto) 0.2 Thou/mm3 (0.0-0.5); Eosinophils % (Auto) 2 % (0-10); Hematocrit 35.9 % (36.0-46.0); Hemoglobin 11.1 g/dL (12.0-16.0); Immature Granulocytes Auto 0.06 Thou/mm3 (0.00-0.00); Lymphocytes # (Auto) 1.6 Thou/mm3 (1.0-4.8); Lymphocytes % (Auto) 20 % (10-50); Mean Corpuscular HGB Conc 30.9 g/dl (31.0-37.0); Mean Corpuscular Hemoglobin 24.2 pg (25.0-35.0); Mean Corpuscular Volume 78 fL (80-100); Monocytes # (Auto) 0.3 Thou/mm3 (0.0-0.8); Monocytes % (Auto) 4 % (0-12); Neutrophils # (Auto) 5.7 Thou/mm3 (1.8-7.7); Neutrophils % (Auto) 72 % (37-80); Nucleated Red Blood Cell # 0.00 Thou/mm3 (0.00-0.00); Nucleated Red Blood Cell % 0 /100 WBC (0); Platelet Count 305 Thou/mm3 (140-440); RDW Standard Deviation 43.2 fL (36.4-46.3); Red Blood Count 4.58 Miln/mm3 (4.00-5.20); White Blood Count 7.8 Thou/mm3 (3.6-11.0)
[2025-02-07 08:26] LABS: Bilirubin,Urine Negative (Negative); Blood,Urine Negative (Negative); Clarity,Urine Clear (Clear/Hazy); Color,Urine Lt-Yellow (Lt Yel-Yel); Culture Indicated,Urine Not Indicated; Glucose, Urine Negative (Negative); Ketones,Urine Negative (Negative); Leukocyte Esterase,Urine Positive (Negative); Nitrite,Urine Negative (Negative); PH,Urine 6.5 (5.0-7.0); Protein,Urine Negative (Neg - Trace); RBC,Urine 2 /hpf (0-3); Specific Gravity,Urine 1.024 (1.001-1.035); Squamous Epithelial Cell,Urine 4 /hpf (0-5); Urobilinogen,Urine Negative mg/dL (0.0-1.0); WBC,Urine 3 /hpf (0-5)
[2025-02-07 08:34] LABS: HCG Qualitative,Urine Negative
[2025-02-07 08:39] LABS: Alanine Aminotransferase 11 U/L (10-49); Albumin, Serum 4.5 gm/dL (3.5-5.0); Albumin/Globulin Ratio 1.4 (1.2-2.2); Alkaline Phosphatase 50 U/L (46-116); Anion Gap 9 (7-16); Aspartate Amino Transferase 12 U/L (0-34); BUN/Creatinine Ratio 13 Ratio (12-20); Bilirubin,Total 0.4 mg/dL (0.3-1.2); Blood Urea Nitrogen 10 mg/dL (9-23); Calcium 9.0 mg/dL (8.3-10.6); Calcium (Corrected) 9.0 mg/dL (8.5-10.1); Carbon Dioxide 25.1 mMol/L (20.0-31.0); Chloride 105 mMol/L (98-107); Creatinine (Component) 0.8 mg/dL (0.6-1.3); Estimated Creatinine Clearance 133.8 mL/min (>60); Globulin 3.3 gm/dL (2.3-3.5); Glucose 100 mg/dL (74-106); Lipase 35 U/L (12-53); Osmolality,Calculated 276 (275-295); Potassium 4.1 mMol/L (3.4-5.1); Sodium 139 mMol/L (136-145); Total Protein 7.8 gm/dL (5.7-8.2); eGFR > 60 See Note
--- NOTE | 2025-02-07 12:10 | PD.EDABDPN ---
ED Abdominal Pain RME/HPI General Chief Complaint: Abdominal Pain Stated complaint: BACK AND ABD PAIN SINCE 01/31 Time seen by provider: 02/07/25 07:32 Arrival date/time: 02/07/25 07:18 29-year-old female with no significant medical problems presents to the Emergency Department today for complaint of back pain and abdominal pain ongoing since 01/31 patient reports no fever nausea or vomiting Limitations: no limitations Related Data Home Medications ?Medication ?Instructions ?Recorded ?Confirmed omeprazole 20 mg capsule,delayed 20 mg PO DAILY 12/08/23 12/08/23 release sertraline 50 mg tablet 50 mg PO DAILY 12/08/23 12/08/23 Previous Rx's ?Medication ?Instructions ?Recorded benzonatate 100 mg capsule 100 mg PO TID #14 caps 02/01/24 ibuprofen 800 mg tablet 800 mg PO TID PRN pain #30 tabs 02/01/24 acetaminophen-caffeine 500 mg-65 1 tab PO Q6H PRN pain #30 tabs 10/10/24 mg tablet (Excedrin Tension Headache) ibuprofen 800 mg tablet 800 mg PO TID PRN pain #30 tabs 10/10/24 cyclobenzaprine 10 mg tablet 10 mg PO TID PRN muscle spasm #30 01/31/25 tabs ibuprofen 800 mg tablet 800 mg PO Q8H PRN pain #30 tabs 01/31/25 tramadol 50 mg tablet 50 mg PO BID PRN pain #6 tabs 02/07/25 Allergies Allergy/AdvReac Type Severity Reaction Status Date / Time No Known Allergies Allergy Verified 02/07/25 07:21 Review of Systems Review of Systems Systems Reviewed: All systems reviewed, normal except as documented Constitutional Constitutional: Reports system reviewed and no additional complaints, except as documented, Denies fever(s) and Denies headache(s) Eyes Eyes: Reports system reviewed and no additional complaints, except as documented and Denies blurry vision ENT Ears, Nose, Mouth, and Throat: Reports system reviewed and no additional complaints, except as documented, Denies headache(s), Denies nasal congestion and Denies nasal discharge Cardiovascular Cardiovascular: Reports system reviewed and no additional complaints, except as documented, Denies chest pain and Denies dyspnea Respiratory Respiratory: Reports system reviewed and no additional complaints, except as documented, Denies chest congestion, Denies cough and Denies dyspnea Gastrointestinal Gastrointestinal: Reports system reviewed and no additional complaints, except as documented and Reports abdominal pain Musculoskeletal Musculoskeletal: Reports system reviewed and no additional complaints, except as documented and Reports back pain Integumentary/Breasts Skin/Breast: Reports system reviewed and no additional complaints, except as documented and Denies rash Neurologic Neurologic: Reports system reviewed and no additional complaints, except as documented, Reports as per HPI and Denies headache(s) Past Medical History Past Medical History NEUROLOGIC: Negative Neurological Disorders or Seizures CARDIAC: Positive Hypercholesterolemia; Negative Cardiac Disorders or Congestive Heart Failure RESPIRATORY: Negative Chronic Obstructive Pulmonary Disease (COPD) or Asthma GASTROINTESTINAL: Negative Gastrointestinal Disorders GENITOURINARY: Negative Genitourinary Disorders or Renal Disease REPRODUCTIVE: Negative Pelvic Inflammatory Disease MUSCULOSKELETAL: Negative Musculoskeletal Disorders ENDOCRINE: Negative Endocrine Disorders, Diabetes Mellitus Type 1 or Diabetes Mellitus Type 2 HEMATOLOGIC: Negative Blood Disorders or Sickle Cell Disease PSYCHO/SOCIAL: Positive Depression and Anxiety OTHER HISTORY: Negative Autoimmune Disease, Blood Transfusions, Blood Transfusion Reaction, Anesthesia Reactions or Cancer Social History SMOKING STATUS: Never smoker ED Exam General Limitations: Present no limitations General appearance: Present alert and in no apparent distress Head Head exam: Present atraumatic Eye Eye exam: Present normal appearance, PERRL and EOMI ENT ENT exam: Present normal exam, normal oropharynx and mucous membranes moist Neck Neck exam: Present normal inspection, full ROM and trachea midline Chest Chest inspection: Present normal inspection and symmetric chest wall rise Respiratory Respiratory exam: Present normal lung sounds bilaterally Cardiovascular Cardiovascular exam: Present regular rate, normal rhythm and normal heart sounds Abdominal Exam Abdominal exam: Present soft and normal bowel sounds; Absent distention, tenderness, guarding, rebound, rigidity, Cortés's sign or tenderness at McBurney's Point Abdominal tenderness: Absent RUQ or RLQ Extremities Exam Extremities exam: Present normal inspection and full ROM Back Exam Back exam: Present normal inspection and full ROM Neurological Exam Neurological exam: Present alert, oriented X3 and CN II-XII intact Psychiatric Psychiatric exam: Present normal affect and normal mood Skin Skin exam: Present warm, dry, intact and normal color Course Quality Measures none Orders Category Date Time Status CT abdomen pelvis wo con Stat Exams 02/07/25 07:38 Completed CBC Stat Lab 02/07/25 07:49 Completed Comprehensive Metabolic Panel Stat Lab 02/07/25 07:49 Completed HCG Qualitative,Urine Stat Lab 02/07/25 08:09 Completed Lipase Stat Lab 02/07/25 07:49 Completed UA, C/S IF [Urinalysis, C/S if Indicated] Stat Lab 02/07/25 08:09 Completed Ketorolac Inj [Toradol Inj] Med 02/07/25 07:38 Discontinued 30 mg IM X1 ONE Vital Signs Vital signs: Vital Signs Temperature 98.0 F 02/07/25 07:24 Pulse Rate 85 02/07/25 07:24 Respiratory Rate 17 02/07/25 07:24 Blood Pressure 143/80 H 02/07/25 07:24 Pulse Oximetry (%) 99 02/07/25 07:24 Oxygen Delivery Method Room Air 02/07/25 07:24 o2 sat 99% r.a wnl Abdominal Pain MDM MDM Narrative MDM Narrative:: 29-year-old female with no significant medical problems presents to the Emergency Department today for complaint of back pain and abdominal pain ongoing since 01/31 patient reports no fever nausea or vomiting On exam patient well-appearing patient does not appear ill or toxic no acute distress Lab work and imaging obtained acute emergent findings noted Patient was given pain medication here Patient discharged home in no distress to follow-up with primary care doctor in the next 24 to 48 hours and for any worsening symptoms to return to the ER immediately Patient data External records reviewed:: [facility] previous records Clinical information provided by:: patient Social determinants that could affect healthcare access:: none Patient has the following chronic illnesses:: none How is presenting disease/condition affected by chronic disease/condition?: no chronic disease Evaluation data The following diagnostics were reviewed and interpreted by me:: lab results and radiology exam(s) Lab and/or radiology exams considered but not ordered:: lab rad obtained Interpretation Summary: given Medications / Prescriptions Medications or Prescriptions considered but not ordered:: given Medication administrations:: Medication Administration History Discontinued Medications Ketorolac Tromethamine (Ketorolac Inj 60 Mg/2 Ml Vial) 30 mg IM X1 ONE Stop: 02/07/25 07:39 Last Admin: 02/07/25 07:45 Dose: 30 mg Documented By: ANDREAS given Consultations Consultation(s) initiated? (list below): No Diagnosis Differential diagnosis abdominal pain: abdominal pain, acute appendicitis, calculus of kidney, diverticulitis and small bowel obstruction Most likely diagnosis given after review of the tests above:: abd pain Admission Indicated Admission indicated?: not indicated Admission Request Was there a request for admission?: No Disposition Plan Disposition Plan: Discharge Discharge Attestation Discharge Attestation: The patient and all family members were given an opportunity to ask questions and understood the discharge instructions. Discharge instructions specifically effects, indications for sooner follow up or return to the emergency department, and the expected course of current diagnosis. Patient condition: Stable Discharge Plan Plan Patient Disposition: HOME (Self Care) Discharge Disposition comment: Stable Prescriptions/Referrals Prescriptions/Med Rec: New tramadol 50 mg tablet 50 mg PO BID PRN (Reason: pain) Qty: 6 0RF No Action omeprazole 20 mg capsule,delayed release(DR/EC) 20 mg PO DAILY sertraline 50 mg tablet 50 mg PO DAILY benzonatate 100 mg capsule 100 mg PO TID Qty: 14 0RF ibuprofen 800 mg tablet 800 mg PO TID PRN (Reason: pain) Qty: 30 0RF Excedrin Tension Headache 500-65 mg tablet 1 tab PO Q6H PRN (Reason: pain) Qty: 30 0RF ibuprofen 800 mg tablet 800 mg PO TID PRN (Reason: pain) Qty: 30 0RF ibuprofen 800 mg tablet 800 mg PO Q8H PRN (Reason: pain) Qty: 30 0RF cyclobenzaprine 10 mg tablet 10 mg PO TID PRN (Reason: muscle spasm) Qty: 30 0RF Referrals: Solo Turcios MD [Primary Care Provider] - 02/08/25 Problem List Clinical Impression: Back pain, Abdominal pain Patient/Caregiver Discharge Instructions Education Materials: Abdominal Pain Additional Instructions: Please follow up with your primary care doctor in the next 24-48hrs for any worsening symptoms return here immediately Print Language: French Stand Alone Forms: Jennifer Award Info., Work/School Release, Patient Portal Info Letter PA/NAPRAPATH Supervising Physician PA/RENAN Supervising Physician: Dr. argueta
== END 2025-02-07 12:28 | disposition home or self-care (01) ==
PROVIDERS: Nurse Practitioner Primary Care; Emergency Provider Family Medicine; PCP Family Medicine
DX: M54.9 Dorsalgia, unspecified (principal); R10.9 Unspecified abdominal pain
CPT/HCPCS: 36415; 74176; 80053; 81001; 81025; 83690; 85025; 96372; 99284; J1885

== ENCOUNTER 2025-03-10 17:02 | Emergency (ER) | payer MEDICAID, SELFPAY ==
[2025-03-10 17:11] VITALS: BP 116/80; PULSE 85; RESP 20; TEMP 36.8; O2SAT 97
--- NOTE | 2025-03-10 17:17 | XR_ITS ---
Examination: CT cervical spine without contrast 2-D sagittal reconstructions 2-D coronal reconstructions 3-D reconstructions. Exam date and time:March 10 70,025, 1743 hours INDICATIONS: Patient slipped and fell today injury to neck, neck pain CTDI:vol (mGy) 19.4 DLP: (mGycm) 123. Technique: Multiple 2 mm axial sections of the cervical spine have been obtained. The coronal and sagittal reconstructions have been obtained. 3-D reconstructions have been obtained. Low dose protocols were performed. One or more of the following dose reduction techniques were used; automated exposure control, adjustment of the mA and/or KV according to patient size, use of iterative reconstruction technique. Findings: Axial sections demonstrate intact base of the skull. C1 exhibit satisfactory relationship to the odontoid. No acute cervical vertebral body fracture seen. Alignment posterior spinous processes satisfactory. Impression: No acute cervical fracture.
--- NOTE | 2025-03-10 17:17 | XR_ITS ---
Examination: CT brain head without contrast. 2-D sagittal coronal reconstructions Date and time of exam:March 10, 2025, 1743 hours, comparison October 10, 2024 INDICATIONS: Patient slipped and fell today with injury to the back of the head, head pain CTDI: vol (mGy):53.3. DLP: (mGycm):1041 Technique: Multiple CT axial sections of the brain have been obtained, 5 mm slice thickness. Contrast has not been administered. 2-D sagittal, coronal reconstructions have been obtained Low dose protocols were performed. One or more of the following dose reduction techniques were used; automated exposure control, adjustment of the mA and/or KV according to patient size, use of iterative reconstruction technique. Findings: No significant ventricular enlargement. Intra-axial or extra-axial hemorrhage density is not seen. No mass effect or midline shift Basal cisterns are not remarkable. Fourth ventricle is midline. Cranial vault intact. Impression: Negative for acute hemorrhage, mass effect or midline shift
--- NOTE | 2025-03-10 17:18 | EDNOTE_ITS ---
<Statement entered by May Archer MD - 03/25/25 06:24> As co-signing physician, I was present and available for consult prn. I concur with the plan and care as documented by the midlevel provider. ED Neck Injury Pain RME/HPI General Chief Complaint: Head Injury Stated Complaint: SLIPPED IN SHOWER HITTING BACK OF HEAD/NECK Time Seen by Provider: 03/10/25 17:07 Source: patient, RN notes reviewed and old records reviewed Arrival date/time: 03/10/25 17:02 Mode of arrival: ambulatory Limitations: no limitations RME / HPI RME / HPI Narrative: 29yof presents to ED for head and neck pain s/p slip and fall in the shower this evening. No loc or vomiting reported. No medications or treatments sports physiotherapist. Patient denies vision changes, dizziness, focal weakness or numbness/tingling. Related Data Home Medications ?Medication ?Instructions ?Recorded ?Confirmed omeprazole 20 mg capsule,delayed 20 mg PO DAILY 12/08/23 release sertraline 50 mg tablet 50 mg PO DAILY 12/08/2311/22 Previous Rx's ?Medication ?Instructions ?Recorded benzonatate 100 mg capsule 100 mg PO TID #14 caps 01/22 ibuprofen 800 mg tablet 800 mg PO TID PRN pain #30 t abs 02/01/24 acetaminophen-caffeine 500 mg-65 1 tab PO Q6H PRN pain #30 tabs 10/10/24 mg tablet (Excedrin Tension Headache) ibuprofen 800 mg tablet 800 mg PO TID PRN pain #30 t abs 10/10/24 cyclobenzaprine 10 mg tablet 10 mg PO TID PRN muscle s pasm #30 01/31/25 tabs ibuprofen 800 mg tablet 800 mg PO Q8H PRN pain #30 t abs 01/31/25 tramadol 50 mg tablet 50 mg PO BID PRN pain #6 tab s 02/07/25 ibuprofen 600 mg tablet 600 mg PO Q6H PRN pain #30 t abs 03/10/25 lidocaine 5 % topical patch 1 patch topical QDAY PRN p ain #15 03/10/25 ea methocarbamol 500 mg tablet 1,000 mg (2 x 500 mg) PO Q 8H PRN 03/10/25 pain #20 tabs Allergies Allergy/AdvReac Type Severity Reaction Status Date / Time No Known Allergies Allergy Verified 03/10/25 17:04 Review of Systems Review of Systems Systems Reviewed: All systems reviewed, normal except as documented Constitutional Constitutional: Reports headache(s) Eyes Eyes: Denies blurry vision ENT Ears, Nose, Mouth, and Throat: Denies dizziness, Reports headache(s) and Reports neck pain Gastrointestinal Gastrointestinal: Denies nausea and Denies vomiting Musculoskeletal Musculoskeletal: Denies back pain and Reports neck pain Neurologic Neurologic: Denies dizziness and Reports headache(s) Past Medical History Past Medical History GASTROINTESTINAL: Positive Obesity PSYCHO/SOCIAL: Positive Anxiety Surgical History OTHER SURGICAL HX: R foot Social History SMOKING STATUS: Never smoker SUBSTANCE USE: does not use ALCOHOL: Never ED Exam General Limitations: Present no limitations General appearance: Present alert and in no apparent distress Head Head exam: Present atraumatic and normocephalic Eye Eye exam: Present normal appearance, PERRL and EOMI ENT ENT exam: Present normal exam and mucous membranes moist Neck Neck exam: Present full ROM and tenderness (R paraspinal cervical) Chest Chest inspection: Present normal inspection and symmetric chest wall rise Respiratory Respiratory exam: Present normal lung sounds bilaterally; Absent respiratory distress Cardiovascular Cardiovascular exam: Present regular rate and normal rhythm Extremities Exam Extremities exam: Present normal inspection and full ROM Back Exam Back exam: Absent paraspinal tenderness or vertebral tenderness Neurological Exam Neurological exam: Present alert, oriented X3, CN II-XII intact and normal gait; Absent motor sensory deficit Psychiatric Psychiatric exam: Present normal affect and normal mood Skin Skin exam: Present warm, dry, intact and normal color Course Quality Measures none Orders Category Date Time Status CT cervical spine wo con Stat Exams 03/10/25 17:[address] head/brain wo con Stat Exams 03/10/25 17:17 Completed Acetaminophen Tab [Tylenol ES Tab] Med 03/10/25 17:17 Discontinued 1,000 mg PO X1 ONE CYCLObenzaPRINE [Flexeril] Med 03/10/25 17:17 Discontinued 10 mg PO X1 ONE Vital Signs Vital signs: Vital Signs Temperature 98.2 F 03/10/25 17:11 Pulse Rate 85 03/10/25 17:11 Respiratory Rate 20 03/10/25 17:11 Blood Pressure 116/80 03/10/25 17:11 Pulse Oximetry (%) 97 03/10/25 17:11 Oxygen Delivery Method Room Air 03/10/25 17:11 Neck Pain MDM Narrative MDM Narrative:: 29yof presents to ED for head and neck pain s/p slip and fall in the shower this evening. No loc or vomiting reported. No medications or treatments sports physiotherapist. Patient denies vision changes, dizziness, focal weakness or numbness/tingling. CT head/neck negative. Patient is neurologically intact. Encouraged rest, ice, motrin/tylenol prn pain. Pcp follow up as needed. Stable for dc, RTED precautions given. Patient data External records reviewed:: [facility] previous records (02/07/25 ED visit for abdomin al pain) Clinical information provided by:: patient Social determinants that could affect healthcare access:: none Patient has the following chronic illnesses:: anxiety, obesity How is presenting disease/condition affected by chronic disease/condition?: exacerbated by Evaluation data The following diagnostics were reviewed and interpreted by me:: radiology exam(s) Lab and/or radiology exams considered but not ordered:: none Interpretation Summary: CT head: no ICH per my read CT c-spine: no fracture per my read Medications / Prescriptions Medications or Prescriptions considered but not ordered:: none Medication administrations:: Medication Administration History Discontinued Medications Acetaminophen (Acetaminophen 500 Mg Tablet) 1,000 mg PO X1 ONE Stop: 03/10/25 17:18 Last Admin: 03/10/25 17:33 Dose: 1,000 mg Documented By: EF Cyclobenzaprine HCl (Cyclobenzaprine 5 Mg Tablet) 10 mg PO X1 ONE Stop: 03/10/25 17:18 Last Admin: 03/10/25 17:33 Dose: 10 mg Documented By: RENAE above medications adminsitered in ED Consultations Consultation(s) initiated? (list below): No Diagnosis Neck Differential Diagnosis: other (head injury, neck pain, neck strain, torticollis, ICH, cervical fracture) Most likely diagnosis given after review of the tests above:: head injury, neck strain Admission Indicated Admission indicated?: not indicated Admission Request Was there a request for admission?: No Disposition Plan Disposition Plan: Discharge Discharge Attestation Discharge Attestation: The patient and all family members were given an opportunity to ask questions and understood the discharge instructions. Discharge instructions specifically effects, indications for sooner follow up or return to the emergency department, and the expected course of current diagnosis. Patient condition: Stable Discharge Plan Plan Patient Disposition: HOME (Self Care) Patient condition on transfer: Stable Prescriptions/Referrals Prescriptions/Med Rec: New ibuprofen 600 mg tablet 600 mg PO Q6H PRN (Reason: pain) Qty: 30 0RF methocarbamol 500 mg tablet 1,000 mg PO Q8H PRN (Reason: pain) Qty: 20 0RF lidocaine 5 % adhesive patch,medicated 1 patch topical QDAY PRN (Reason: pain) Qty: 15 0RF Rx Instructions: leave on most painful area for up to 12 hrs No Action omeprazole 20 mg capsule,delayed release(DR/EC) 20 mg PO DAILY sertraline 50 mg tablet 50 mg PO DAILY benzonatate 100 mg capsule 100 mg PO TID Qty: 14 0RF ibuprofen 800 mg tablet 800 mg PO TID PRN (Reason: pain) Qty: 30 0RF Excedrin Tension Headache 500-65 mg tablet 1 tab PO Q6H PRN (Reason: pain) Qty: 30 0RF ibuprofen 800 mg tablet 800 mg PO TID PRN (Reason: pain) Qty: 30 0RF tramadol 50 mg tablet 50 mg PO BID PRN (Reason: pain) Qty: 6 0RF ibuprofen 800 mg tablet 800 mg PO Q8H PRN (Reason: pain) Qty: 30 0RF cyclobenzaprine 10 mg tablet 10 mg PO TID PRN (Reason: muscle spasm) Qty: 30 0RF Referrals: Huong Coello, SENIOR WEB ARCHITECT [Primary Care Provider] - In 1 week Problem List Clinical Impression: Head injury, Neck pain Patient/Caregiver Discharge Instructions Education Materials: ED Head Injury (Adult), ED Neck Pain Print Language: Amharic Stand Alone Forms: Jennifer Award Info., Work/School Release, Patient Portal Info Letter PA/LAP HAND TOOL Supervising Physician PA/LAP HAND TOOL Supervising Physician: Gianni
[2025-03-10] MEDS: ACETAMINOPHEN 500 MG TABLET 1000 MG PO (17:33)
== END 2025-03-10 18:20 | disposition home or self-care (01) ==
PROVIDERS: Emergency Provider Emergency Medicine; PCP Nurse Practitioner Family
DX: S09.90XA Unspecified injury of head, initial encounter (principal); M54.2 Cervicalgia; E66.9 Obesity, unspecified; F41.9 Anxiety disorder, unspecified; Z68.37 Body mass index [BMI] 37.0-37.9, adult; W18.2XXA Fall in (into) shower or empty bathtub, initial encounter; Y93.E1 Activity, personal bathing and showering
CPT/HCPCS: 70450; 72125; 99283; A9270

== ENCOUNTER 2025-04-24 17:05 | Emergency (ER) | payer MEDICAID, SELFPAY ==
[2025-04-24 17:12] VITALS: BP 121/83; PULSE 70; RESP 16; TEMP 36.8; O2SAT 99; BMI 38.5
--- NOTE | 2025-04-24 17:27 | PD.EDRME ---
Rapid Medical Screening Exam [facility] Arrival date/time: 04/24/25 17:05 29-year-old female presents to the Emergency Department for complaint of abdominal pain ongoing for approximately 1 month patient was seen in January for similar symptoms Chief Complaint: Abdominal Pain Vital signs: Vital Signs Temperature 98.2 F 04/24/25 17:12 Pulse Rate 70 04/24/25 17:12 Respiratory Rate 16 04/24/25 17:12 Blood Pressure 121/83 04/24/25 17:12 Pulse Oximetry (%) 99 04/24/25 17:12 Oxygen Delivery Method Room Air 04/24/25 17:12
[2025-04-24 17:45] LABS: Collection Type, Urine Clean Catch
[2025-04-24 17:48] LABS: Basophils # (Auto) 0.0 Thou/mm3 (0.0-0.2); Basophils % (Auto) 0 % (0-2.5); Eosinophils # (Auto) 0.2 Thou/mm3 (0.0-0.5); Eosinophils % (Auto) 2 % (0-10); Hematocrit 33.3 % (36.0-46.0); Hemoglobin 10.4 g/dL (12.0-16.0); Immature Granulocytes Auto 0.03 Thou/mm3 (0.00-0.00); Lymphocytes # (Auto) 2.2 Thou/mm3 (1.0-4.8); Lymphocytes % (Auto) 26 % (10-50); Mean Corpuscular HGB Conc 31.2 g/dl (31.0-37.0); Mean Corpuscular Hemoglobin 24.1 pg (25.0-35.0); Mean Corpuscular Volume 77 fL (80-100); Monocytes # (Auto) 0.3 Thou/mm3 (0.0-0.8); Monocytes % (Auto) 4 % (0-12); Neutrophils # (Auto) 5.7 Thou/mm3 (1.8-7.7); Neutrophils % (Auto) 67 % (37-80); Nucleated Red Blood Cell # 0.00 Thou/mm3 (0.00-0.00); Nucleated Red Blood Cell % 0 /100 WBC (0); Platelet Count 302 Thou/mm3 (140-440); RDW Standard Deviation 39.6 fL (36.4-46.3); Red Blood Count 4.32 Miln/mm3 (4.00-5.20); White Blood Count 8.5 Thou/mm3 (3.6-11.0)
[2025-04-24 17:48] LABS: HCG Qualitative,Urine Negative
[2025-04-24 17:50] LABS: Bilirubin,Urine Negative (Negative); Blood,Urine 2+ (Negative); Clarity,Urine Clear (Clear/Hazy); Color,Urine Lt-Yellow (Lt Yel-Yel); Culture Indicated,Urine Not Indicated; Glucose, Urine Negative (Negative); Ketones,Urine Negative (Negative); Leukocyte Esterase,Urine Negative (Negative); Nitrite,Urine Negative (Negative); PH,Urine 6.0 (5.0-7.0); Protein,Urine Negative (Neg - Trace); RBC,Urine 54 /hpf (0-3); Specific Gravity,Urine 1.026 (1.001-1.035); Squamous Epithelial Cell,Urine 1 /hpf (0-5); Urobilinogen,Urine Negative mg/dL (0.0-1.0); WBC,Urine 2 /hpf (0-5)
[2025-04-24] MEDS: MG HYD/AL HYD/SIME (Maalox Reg) SUSP 30 ML UDC PO (17:52)
[2025-04-24] MEDS: FAMOTIDINE 20 MG TABLET PO (17:52)
[2025-04-24] MEDS: LIDOCAINE VISCOUS 2% 15 ML UDC PO (17:53)
[2025-04-24 18:09] LABS: Alanine Aminotransferase 10 U/L (10-49); Albumin, Serum 4.5 gm/dL (3.5-5.0); Albumin/Globulin Ratio 1.5 (1.2-2.2); Alkaline Phosphatase 55 U/L (46-116); Anion Gap 11 (7-16); Aspartate Amino Transferase 12 U/L (0-34); BUN/Creatinine Ratio 10 Ratio (12-20); Bilirubin,Total 0.4 mg/dL (0.3-1.2); Blood Urea Nitrogen 8 mg/dL (9-23); Calcium 8.9 mg/dL (8.3-10.6); Calcium (Corrected) 8.9 mg/dL (8.5-10.1); Carbon Dioxide 25.0 mMol/L (20.0-31.0); Chloride 104 mMol/L (98-107); Creatinine (Component) 0.8 mg/dL (0.6-1.3); Estimated Creatinine Clearance 139.2 mL/min (>60); Globulin 3.0 gm/dL (2.3-3.5); Glucose 103 mg/dL (74-106); Lipase 37 U/L (12-53); Osmolality,Calculated 277 (275-295); Potassium 4.0 mMol/L (3.4-5.1); Sodium 140 mMol/L (136-145); Total Protein 7.5 gm/dL (5.7-8.2); eGFR > 60 See Note
--- NOTE | 2025-04-24 19:50 | EDNOTE_ITS ---
ED Abdominal Pain RME/HPI General Chief Complaint: Abdominal Pain Stated complaint: UPPER ABD PAIN/BURNING, NAUSEA Time seen by provider: 04/24/25 19:23 Arrival date/time: 04/24/25 17:05 RME / HPI RME / HPI narrative: 29-year-old female presents to the Emergency Department for complaint of abdominal pain ongoing for approximately 1 month patient was seen in January for similar symptoms. Described as dull ache and burning-like sensation severity moderate. Denies any vomiting denies any fever denies any other complaints. Abdominal surgery includes laparoscopic cholecystectomy in the past. Maintaining omeprazole daily with no relief. Related Data Home Medications ?Medication ?Instructions ?Recorded ?Confirmed omeprazole 20 mg capsule,delayed 20 mg PO DAILY 12/08/23 release sertraline 50 mg tablet 50 mg PO DAILY 12/08/2311/22 Previous Rx's ?Medication ?Instructions ?Recorded benzonatate 100 mg capsule 100 mg PO TID #14 caps 01/22 ibuprofen 800 mg tablet 800 mg PO TID PRN pain #30 t abs 02/01/24 acetaminophen-caffeine 500 mg-65 1 tab PO Q6H PRN pain #30 tabs 10/10/24 mg tablet (Excedrin Tension Headache) ibuprofen 800 mg tablet 800 mg PO TID PRN pain #30 t abs 10/10/24 cyclobenzaprine 10 mg tablet 10 mg PO TID PRN muscle s pasm #30 01/31/25 tabs ibuprofen 800 mg tablet 800 mg PO Q8H PRN pain #30 t abs 01/31/25 tramadol 50 mg tablet 50 mg PO BID PRN pain #6 tab s 02/07/25 ibuprofen 600 mg tablet 600 mg PO Q6H PRN pain #30 t abs 03/10/25 lidocaine 5 % topical patch 1 patch topical QDAY PRN p ain #15 03/10/25 ea methocarbamol 500 mg tablet 1,000 mg (2 x 500 mg) PO Q 8H PRN 03/10/25 pain #20 tabs dicyclomine 20 mg tablet 20 mg PO QID PRN abdominal p ain 04/24/25 #20 tabs famotidine 40 mg tablet (Pepcid) 40 mg PO BID #30 tabs 04/24/25 Allergies Allergy/AdvReac Type Severity Reaction Status Date / Time No Known Allergies Allergy Verified 03/10/25 17:04 Review of Systems Review of Systems Narrative Review of Systems: Review of system reviewed and within normal limits except mentioned in HPI ED Exam Narrative Physical exam: VITAL SIGNS: Reviewed. GENERAL APPEARANCE: Alert and interactive, follows commands, no acute distress, HEAD AND FACE: Non-traumatic. ENT: PERRL, pink conjunctivitis, eyelid no trauma, Mucous membrane moist. NECK: Supple, nontender, no nuchal rigidity. CHEST: No tenderness, no crepitus, no paradoxical movement, no retractions. LUNGS: Clear, well ventilated, symmetric, no rales, no wheezing, no ronchi, no stridor, good breath sounds bilaterally. HEART: Regular rate, regular rhythm, no murmur, no gallops. ABDOMEN: Soft, positive bowel sounds, nondistended, no guarding, epigastric tenderness, no rebound, no masses, RECTAL: Deferred. GENITAL: Deferred. NEUROLOGICAL: Gross motor function intact sensory function intact, Appropriate for age. MUSCULOSKELETAL: low back nontender, full range of motion. EXTREMITIES: Nontender, full range of motion. SKIN: Color pink, dry, no rash, no lacerations, no abrasions, no contusions. LYMPHATICS: Deferred. Course Quality Measures none Orders Category Date Time Status CBC Stat Lab 04/24/25 17:30 Completed Comprehensive Metabolic Panel Stat Lab 04/24/25 17:30 Completed HCG Qualitative,Urine Stat Lab 04/24/25 17:41 Completed Lipase Stat Lab 04/24/25 17:30 Completed UA, C/S IF [Urinalysis, C/S if Indicated] Stat Lab 04/24/25 17:41 Completed Famotidine [Pepcid] Med 04/24/25 17:26 Discontinued 20 mg PO X1 ONE Lidocaine 2% Viscous [Xylocaine 2% Viscous] Med 04/24/25 17:26 Discontinued 15 ml PO X1 ONE mg Hyd/Al Hyd/Oj Susp [Maalox Susp] Med 04/24/25 17:26 Discontinued 30 ml PO X1 ONE Vital Signs Vital signs: Vital Signs Temperature 98.2 F 04/24/25 17:12 Pulse Rate 70 04/24/25 17:12 Respiratory Rate 16 04/24/25 17:12 Blood Pressure 121/83 04/24/25 17:12 Pulse Oximetry (%) 99 04/24/25 17:12 Oxygen Delivery Method Room Air 04/24/25 17:12 Abdominal Pain [facility] Narrative [facility] Narrative:: 29-year-old female presents to the Emergency Department for complaint of abdominal pain ongoing for approximately 1 month patient was seen in January for similar symptoms. Described as dull ache and burning-like sensation severity moderate. Denies any vomiting denies any fever denies any other complaints. Abdominal surgery includes laparoscopic cholecystectomy in the past. Maintaining omeprazole daily with no relief. Patient's workup today all came back unremarkable. Patient is probably having worsening GERD since patient is still drinking soda. Despite taking omeprazole. Told her to stop taking omeprazole, and patient will be prescribed home on Pepcid twice daily. Advised her to stop drinking soda. Stable for discharge home Patient data External records reviewed:: None Clinical information provided by:: patient Social determinants that could affect healthcare access:: none Patient has the following chronic illnesses:: History of gastritis How is presenting disease/condition affected by chronic disease/condition?: exacerbated by Evaluation data The following diagnostics were reviewed and interpreted by me:: lab results Lab and/or radiology exams considered but not ordered:: None Interpretation Summary: See results [facility] Medications / Prescriptions Medications or Prescriptions considered but not ordered:: None Medication administrations:: Medication Administration History Discontinued Medications Al Hydrox/Mg Hydrox/Simethicone (Mg Hyd/Al Hyd/Oj (Maalox Reg) Susp 30 Ml Udc) 30 ml PO X1 ONE Stop: 04/24/25 17:27 Last Admin: 04/24/25 17:52 Dose: 30 ml Documented By: GOSIA Famotidine (Famotidine 20 Mg Tablet) 20 mg PO X1 ONE Stop: 04/24/25 17:27 Last Admin: 04/24/25 17:52 Dose: 20 mg Documented By: GOSIA Lidocaine HCl (Lidocaine Viscous 2% 15 Ml Udc) 15 ml PO X1 ONE Stop: 04/24/25 17:27 Last Admin: 04/24/25 17:53 Dose: 15 ml Documented By: GOSIA Lidocaine, famotidine, and Maalox with significant improvement symptoms Consultations Consultation(s) initiated? (list below): No Diagnosis Differential diagnosis abdominal pain: abdominal pain, gastroenteritis and pancreatitis Most likely diagnosis given after review of the tests above:: GERD Admission Indicated Admission indicated?: not indicated Admission Request Was there a request for admission?: No Disposition Plan Disposition Plan: Discharge Discharge Attestation Discharge Attestation: The patient was given an opportunity to ask questions and understood the discharge instructions. Discharge instructions specifically effects, indications for sooner follow up or return to the emergency department, and the expected course of current diagnosis. Patient condition: Stable Discharge Plan Plan Patient Disposition: HOME (Self Care) Discharge Disposition comment: Stable Prescriptions/Referrals Prescriptions/Med Rec: New famotidine [Pepcid] 40 mg tablet 40 mg PO BID Qty: 30 0RF dicyclomine 20 mg tablet 20 mg PO QID PRN (Reason: abdominal pain) Qty: 20 0RF No Action omeprazole 20 mg capsule,delayed release(DR/EC) 20 mg PO DAILY sertraline 50 mg tablet 50 mg PO DAILY benzonatate 100 mg capsule 100 mg PO TID Qty: 14 0RF ibuprofen 800 mg tablet 800 mg PO TID PRN (Reason: pain) Qty: 30 0RF Excedrin Tension Headache 500-65 mg tablet 1 tab PO Q6H PRN (Reason: pain) Qty: 30 0RF ibuprofen 800 mg tablet 800 mg PO TID PRN (Reason: pain) Qty: 30 0RF tramadol 50 mg tablet 50 mg PO BID PRN (Reason: pain) Qty: 6 0RF ibuprofen 800 mg tablet 800 mg PO Q8H PRN (Reason: pain) Qty: 30 0RF cyclobenzaprine 10 mg tablet 10 mg PO TID PRN (Reason: muscle spasm) Qty: 30 0RF ibuprofen 600 mg tablet 600 mg PO Q6H PRN (Reason: pain) Qty: 30 0RF methocarbamol 500 mg tablet 1,000 mg PO Q8H PRN (Reason: pain) Qty: 20 0RF lidocaine 5 % adhesive patch,medicated 1 patch topical QDAY PRN (Reason: pain) Qty: 15 0RF Rx Instructions: leave on most painful area for up to 12 hrs Referrals: No Primary/Family,Physician [Primary Care Provider] - In 1 week Problem List Clinical Impression: Chronic GERD Patient/Caregiver Discharge Instructions Discharge Activity: activity as tolerated Education Materials: ED GERD (Adult) Additional Instructions: Thank you for the opportunity for serving you today. You are stable for discharged . You are advised to: Follow-up with your PCP in 1 to 2 days Return to ED for worsening of symptoms Increase oral fluids Take medication as prescribed Please stop your omeprazole for 2 weeks Please stop drinking soda Print Language: Austrian Stand Alone Forms: Jennifer Award Info., Patient Portal Info Letter PA/HARD ROCK DRILL OPERATOR Supervising Physician PA/HARD ROCK DRILL OPERATOR Supervising Physician: MD Yfn
== END 2025-04-24 21:01 | disposition home or self-care (01) ==
PROVIDERS: Nurse Practitioner Primary Care; Emergency Provider Emergency Medicine
DX: K21.9 Gastro-esophageal reflux disease without esophagitis (principal); Z87.19 Personal history of other diseases of the digestive system; Z90.49 Acquired absence of other specified parts of digestive tract; Z79.899 Other long term (current) drug therapy
CPT/HCPCS: 36415; 80053; 81001; 81025; 83690; 85025; 99284; J3490; A9270